=== PATIENT | male | born 1965 | race Caucasian/White ===

== ENCOUNTER 2023-12-20 08:49 | Emergency (ER) | payer BC, SELFPAY ==
[2023-12-20] VITALS (11 sets, daily range): BP systolic 129–136; BP diastolic 74–81; PULSE 61–85; RESP 15–23; TEMP 36.5; O2SAT 93–100; BMI 24.4
--- NOTE | 2023-12-20 08:57 | ECG_ITS ---
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
--- NOTE | 2023-12-20 08:58 | XR_ITS ---
The [address] [address] Patient Name: JOHN LOWE MRN: [id number] date: 1965 Sex: M Assigned Patient Location: ED.MAIN Current Patient Location: ER Accession/Order Number: [id number] Exam Date: 12/20/2023 09:45 Report Date: 12/20/2023 10:09 At the request of: KEITH SLAUGHTER Procedure: XR chest 2V EXAMINATION: XR chest 2V HISTORY: weakness COMPARISON: No relevant comparison available. TECHNIQUE: PA and lateral FINDINGS: LUNGS: No significant pulmonary parenchymal abnormalities. VASCULATURE: No increased pulmonary vasculature. PLEURA: No pneumothorax, effusion, or pleural thickening. CARDIAC: No cardiomegaly or cardiac silhouette abnormality. MEDIASTINUM: No visible mass or adenopathy. BONES: No fracture or visible bone lesion. OTHER: Negative. XR/XR chest 2V IMPRESSION: No acute cardiopulmonary process Electronically authenticated by: THOMAS ROWE Date: 12/20/2023 10:09
--- NOTE | 2023-12-20 08:58 | CT_ITS ---
The [address] [address] Patient Name: JOHN LOWE MRN: [id number] date: 1965 Sex: M Assigned Patient Location: ED.MAIN Current Patient Location: ED.MAIN Accession/Order Number: [id number] Exam Date: 12/20/2023 09:35 Report Date: 12/20/2023 10:06 At the request of: KEITH SLAUGHTER Procedure: CT head/brain wo con EXAM: CT head/brain wo con CLINICAL INDICATION: weakness TECHNIQUE: Unenhanced computerized tomography of the head was performed. Automated dose reduction technique was employed. COMPARISON: None. FINDINGS: The ventricles are normal in size, configuration, and position for age. There is no intra- or extra-axial mass, hemorrhage, or fluid collection. No areas of abnormal mass effect or attenuation are noted. Visualized paranasal sinuses are free of mucosal disease. No depressed calvarial fracture. CT/CT head/brain wo con IMPRESSION: No acute intracranial abnormality noted. Electronically authenticated by: DONNIE LAM Date: 12/20/2023 10:06
--- NOTE | 2023-12-20 09:01 | ED.GENADUL1 ---
HPI - General Adult General Chief complaint: Weakness Stated complaint: Flu Like Symptoms Time Seen by Provider: 12/20/23 08:56 Limitations: language barrier (IPAD INTERP USED) History of Present Illness HPI narrative: 58-year-old male to the emergency department with chief complaint of generalized weakness. Patient reports that for the last week and a half he has had increasing weakness most prominent in his upper extremities. He reports it is equal bilaterally. He reports that he just feels like he cannot get up and do things. He has been sick with an upper respiratory infection as has his . He denies any falls or injuries. He reports that he can't walk. He reports normal oral intake. He denies any chest pain or shortness of breath. He denies any fever, sweats, chills. He denies any abdominal pain, nausea, vomiting, diarrhea. He denies any vision changes, focal weakness, sensation changes. Patient reports he was seen at an emergency department one week ago for the same complaint and was told a spot on his lung but everything else looked okay. He reports that he was told that he needed to see a primary care doctor for which she has made an appointment but it is not for three weeks. Related Data Previous Rx's Medication Instructions Recorded methylprednisolone 4 mg tablets in 4 mg PO DAILY #21 ea 12/20/23 a dose pack (Medrol (Wiliam)) Allergies Allergy/AdvReac Type Severity Reaction Status Date / Time No Known Drug Allergies Allergy Verified 12/20/23 08:56 Review of Systems ROS Status of ROS 10 or more systems reviewed and unremarkable except as noted in history and below [facility] Social History Smoking status: Never smoker Exam Narrative Exam Narrative: VITALS: I have reviewed the triage vital signs. GENERAL: Well developed, well appearing adult in no acute distress. NEURO: Alert and oriented x4. Moves all extremities. Face is symmetric and expressive. Cranial nerves II through XII grossly intact as tested. Muscular strength and sensation grossly intact upper and lower extremities bilaterally. No dysarthria. No aphasia. No ataxia. Normal gait. NIHSS 0. EYES: PERRL. No scleral icterus or conjunctival injection. No discharge. HENT: Normocephalic, atraumatic. Hearing is grossly intact. Nares grossly patent and without discharge. Mucous membranes moist. NECK: No JVD. Patient moves neck without restriction. CARDIO: Rhythm regular. Normal rate. No murmur, rub, or gallop. Pulses equal bilaterally in the upper and lower extremity. No lower extremity edema. PULM: Lungs clear to auscultation in all oneal. No wheezes, rales, or rhonchi. No conversational dyspnea. No splinting, stridor, or accessory muscle use. GI/: Abdomen is soft and non-tender. Normoactive bowel sounds. EXTREMITIES: Symmetric muscle bulk. No joint swelling. No clubbing, cyanosis, or deformity. SKIN: Warm and dry. Normal turgor. No rash or lesions appreciated. PSYCH: Mood, affect, and interaction is appropriate to the setting. Constitutional Vital Signs, click to edit/add: Last Vital Signs Temp 97.7 F 12/20/23 08:56 Pulse 85 12/20/23 10:10 Resp 19 12/20/23 10:10 BP 136/74 12/20/23 10:22 Pulse Ox 93 L 12/20/23 10:21 O2 Del Method Room Air 12/20/23 08:56 Course Vital Signs Vital signs: Vital Signs Temperature 97.7 F 12/20/23 08:56 Pulse Rate 69 12/20/23 08:56 Respiratory Rate 18 12/20/23 08:56 Blood Pressure 129/81 12/20/23 08:56 Pulse Oximetry 100 12/20/23 08:56 Oxygen Delivery Method Room Air 12/20/23 08:56 Temperature 97.7 F 12/20/23 08:56 Pulse Rate 85 12/20/23 10:10 Respiratory Rate 19 12/20/23 10:10 Blood Pressure 136/74 12/20/23 10:22 Pulse Oximetry 93 L 12/20/23 10:21 Oxygen Delivery Method Room Air 12/20/23 08:56 Medical Decision Making [facility] Narrative Medical decision making narrative: 58-year-old male to the emergency for acute weakness and viral upper respiratory infection symptoms ongoing for the last week and a half. I was able to the patient is afebrile. This is his 2nd Emergency Department visit for this complaint by one week. He has no focal neurologic deficits on exam. We'll proceed with basic workup, troponin, EKG. Obtain a CT scan of his head and chest x-ray. Fluids are ordered. Patient agrees with this plan. 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 Workup is unremarkable. He has a mild Lymphocytopenia which clinically correlates with suspected viral syndrome. Patient ambulated around the department without any difficulties. CT head is negative. Chest x-ray without acute findings. Lab work is unremarkable. He reports he has some pain in his bilateral shoulders and knees now. Medrol Dosepak ordered. He'll follow up with PCP. Return to caution her discussed. All questions were answered. The patient was discharged home. Medical Records Medical records reviewed: Yes I reviewed the patient's medical records Lab Data Lab results reviewed: Yes I reviewed the patient's lab results Labs: Lab Results 12/20/23 12/20/23 12/20/23 Range/Units 09:08 09:13 10:16 WBC 4.5 (4.0-11.0) 10^3/uL RBC 4.23 L (4.70-6.10) 10^6/uL Hgb 13.5 L (14.0-18.0) g/dL Hct 41.5 L (42.0-54.0) % MCV 98.1 H (80.0-94.0) fL MCH 31.9 (25.9-34.0) pg MCHC 32.5 (29.9-35.2) g/dL RDW 12.4 (11.0-15.0) % Plt Count 209 (150-450) 10^3/uL MPV 8.9 L (9.5-13.5) fL Neut % (Auto) 69.8 (43.0-75.0) % Lymph % (Auto) 17.9 L (20.5-60.0) % [place] % (Auto) 8.3 (1.7-12.0) % Eos % (Auto) 3.1 (0.9-7.0) % Baso % (Auto) 0.7 (0.2-2.0) % Neut # (Auto) 3.1 (1.4-6.5) 10^3/uL Lymph # (Auto) 0.8 L (1.2-3.8) 10^3/uL [place] # (Auto) 0.4 (0.3-0.8) 10^3/uL Eos # (Auto) 0.1 (0.0-0.7) 10^3/uL Baso # (Auto) 0.0 (0.0-0.1) 10^3/uL Abs Immat Gran (auto) 0.01 (0.00-0.03) 10^3/uL Imm/Tot Granulo (auto) 0.2 (0.0-0.5) % Sodium 135 L (136-145) mmol/L Potassium 4.3 (3.5-5.1) mmol/L Chloride 101 (98-107) mmol/L Carbon Dioxide 26.0 (21.0-32.0) mmol/L Anion Gap 12.3 BUN 11.0 (7.0-18.0) mg/dL Creatinine 0.86 (0.70-1.30) mg/dL Est GFR ( Amer) >60 (>=60) Est GFR (Non-Af Amer) >60 (>=60) BUN/Creatinine Ratio 12.8 Glucose 109 H (74-106) mg/dL Calcium 8.6 (8.5-10.1) mg/dL Magnesium 1.8 (1.8-2.4) mg/dL Total Bilirubin 0.6 (0.2-1.0) mg/dL AST 24 (15-37) U/L ALT 27 (16-63) U/L Alkaline Phosphatase 84 (46-116) U/L Troponin I High Sens <4.0 L (4.0-76.1) pg/mL Total Protein 7.4 (6.4-8.2) g/dL Albumin 3.4 (3.4-5.0) g/dL Globulin 4.0 g/dL Albumin/Globulin Ratio 0.9 Urine Color Lt. yellow (YELLOW) Urine Clarity Clear (CLEAR) Urine pH 7.5 (5.0-9.0) Ur Specific [place] 1.015 (1.005-1.025) Urine Protein Negative (NEG/TRACE) mg/dL Urine Glucose (UA) Negative (NEGATIVE) mg/dL Urine Ketones Negative (NEGATIVE) mg/dL Urine Occult Blood Negative (NEGATIVE) Urine Nitrite Negative (NEGATIVE) Urine Bilirubin Negative (NEGATIVE) Urine Urobilinogen 0.2 (0.2-1.0) EU/dL Ur Leukocyte Esterase Negative (NEGATIVE) Adenovirus (PCR) Not detected (NOT DETECTE) C. pneumoniae DNA (PCR) Not detected (NOT DETECTE) Coronavirus Type OC43 Not detected (NOT DETECTE) Coronavirus Type HKU1 Not detected (NOT DETECTE) Coronavirus Type 229E Not detected (NOT DETECTE) Coronavirus Type NL63 Not detected (NOT DETECTE) Human Metapneumovir PCR Not detected (NOT DETECTE) M. pneumoniae (PCR) Not detected (NOT DETECTE) Parainfluenza PCR Not detected (NOT DETECTE) Parainfluenza 2 (PCR) Not detected (NOT DETECTE) Parainfluenza 3 (PCR) Not detected (NOT DETECTE) Parainfluenza 4 (PCR) Not detected (NOT DETECTE) RSV (RT-PCR) Not detected (NOT DETECTE) Entero/Rhino (PCR) Not detected (NOT DETECTE) SARS-CoV-2 (PCR) Not detected (NOT DETECTE) Bordetella pertussis (PCR) Not detected (NOT DETECTE) B parapertussis DNA PCR Not detected (NOT DETECTE) Influenza Type A (PCR) Not detected (NOT DETECTE) Influenza Type B (PCR) Not detected (NOT DETECTE) Imaging Data Chest x-ray: Radiologist's impression: ITS Impressions Chest X-Ray 12/20/23 08:58 IMPRESSION: No acute cardiopulmonary process Electronically authenticated by: THOMAS ROWE Date: 12/20/2023 10:[address] 12/20/23 08:58 IMPRESSION: No acute intracranial abnormality noted. Electronically authenticated by: DONNIE LAM Date: 12/20/2023 10:06 ECG Data Attestation: I personally reviewed and interpreted this ECG as follows: Discharge Plan Discharge Chief Complaint: Weakness Clinical Impression: Malaise and fatigue, Viral infection Patient Disposition: Home, Self-Care Time of Disposition Decision: 11:39 Condition: Good Prescriptions / Home Meds: New methylprednisolone [Medrol (Wiliam)] 4 mg tablets,dose pack 4 mg PO DAILY Qty: 21 0RF Rx Instructions: TAKE PER DOSEPAK INSTRUCTIONS Print Language: Tristanian Instructions: Viral Syndrome (ED), Fatigue (ED) Additional Instructions: FOLLOW-UP WITH THE PRIMARY DOCTOR [facility] SETUP FOR YOU SCHEDULED Referrals: Physician,Non-Staff, MD [Primary Care Provider] - 1 week Discharge Date/Time: 12/20/23 11:47 Stand Alone Forms: Portal Instructions
[2023-12-20] MEDS: 0.9 % SODIUM CHLORIDE 1,000 ML 999 ML IV (09:12)
[2023-12-20 09:19] LABS: Adenovirus NOT DETECTED (NOT DETECTE); Bordetella parapertussis NOT DETECTED (NOT DETECTE); Coronavirus 229E NOT DETECTED (NOT DETECTE); Coronavirus HKU1 NOT DETECTED (NOT DETECTE); Coronavirus NL63 NOT DETECTED (NOT DETECTE); Coronavirus OC43 NOT DETECTED (NOT DETECTE); Human Metapneumovirus NOT DETECTED (NOT DETECTE); Human Rhinovirus/Enterovirus NOT DETECTED (NOT DETECTE); Influenza A NOT DETECTED (NOT DETECTE); Influenza B NOT DETECTED (NOT DETECTE); Mycoplasma pneumoniae NOT DETECTED (NOT DETECTE); Parainfluenza Virus 1 NOT DETECTED (NOT DETECTE); Parainfluenza Virus 2 NOT DETECTED (NOT DETECTE); Parainfluenza Virus 3 NOT DETECTED (NOT DETECTE); Parainfluenza Virus 4 NOT DETECTED (NOT DETECTE); Respiratory Syncytial Virus NOT DETECTED (NOT DETECTE); SARS-CoV-2 NOT DETECTED (NOT DETECTE)
[2023-12-20 09:20] LABS: Basophils Percent Auto 0.7 % (0.2-2.0); Eosinophils Absolute Auto 0.1 10^3/uL (0.0-0.7); Eosinophils Percent Auto 3.1 % (0.9-7.0); Hematocrit 41.5 % (42.0-54.0); Hemoglobin 13.5 g/dL (14.0-18.0); Immature Granulocytes Abs Auto 0.01 10^3/uL (0.00-0.03); Immature Granulocytes Pct Auto 0.2 % (0.0-0.5); Lymphocytes Absolute Auto 0.8 10^3/uL (1.2-3.8); Lymphocytes Percent Auto 17.9 % (20.5-60.0); Mean Corpuscular HGB Conc 32.5 g/dL (29.9-35.2); Mean Corpuscular Hemoglobin 31.9 pg (25.9-34.0); Mean Corpuscular Volume 98.1 fL (80.0-94.0); Mean Platelet Volume 8.9 fL (9.5-13.5); Monocytes Absolute Auto 0.4 10^3/uL (0.3-0.8); Monocytes Percent Auto 8.3 % (1.7-12.0); Neutrophils Absolute Auto 3.1 10^3/uL (1.4-6.5); Neutrophils Percent Auto 69.8 % (43.0-75.0); Platelet Count 209 10^3/uL (150-450); Red Blood Count 4.23 10^6/uL (4.70-6.10); Red Cell Distribution Width 12.4 % (11.0-15.0); White Blood Count 4.5 10^3/uL (4.0-11.0)
[2023-12-20 09:44] LABS: Troponin I High Sensitivity <4.0 pg/mL (4.0-76.1)
[2023-12-20 10:00] LABS: Alanine Aminotransferase 27 U/L (16-63); Albumin Globulin Ratio 0.9; Albumin Level 3.4 g/dL (3.4-5.0); Alkaline Phosphatase 84 U/L (46-116); Anion Gap 12.3; Aspartate Amino Transferase 24 U/L (15-37); BUN Creatinine Ratio 12.8; Bilirubin Total 0.6 mg/dL (0.2-1.0); Calcium 8.6 mg/dL (8.5-10.1); Chloride 101 mmol/L (98-107); Estimated GFR (African America >60 (>=60); Estimated GFR (Non-African Ame >60 (>=60); Glucose 109 mg/dL (74-106); Magnesium 1.8 mg/dL (1.8-2.4); Potassium 4.3 mmol/L (3.5-5.1); Sodium 135 mmol/L (136-145); Total Protein 7.4 g/dL (6.4-8.2)
[2023-12-20 10:51] LABS: Bilirubin Urine NEGATIVE (NEGATIVE); Blood Urine NEGATIVE (NEGATIVE); Clarity Urine CLEAR (CLEAR); Color Urine LT. YELLOW (YELLOW); Glucose Urine UA NEGATIVE (NEGATIVE); Ketones Urine NEGATIVE (NEGATIVE); Leukocyte Esterase Urine NEGATIVE (NEGATIVE); Nitrite Urine NEGATIVE (NEGATIVE); Protein Urine NEGATIVE (NEG/TRACE); Specific Gravity Urine 1.015 (1.005-1.025); Urobilinogen Urine 0.2 EU/dL (0.2-1.0); pH Urine 7.5 (5.0-9.0)
[2023-12-20 10:52] LABS: Urine Microscopic Indicated NO
== END 2023-12-20 11:47 | disposition home or self-care (01) ==
PROVIDERS: Emergency Provider Student in an Organized Health Care Education/Training Program
DX: B34.9 Viral infection, unspecified (principal); R53.81 Other malaise; R53.83 Other fatigue; R53.1 Weakness
CPT/HCPCS: 0202U; 36415; 70450; 71046; 80053; 81003; 83735; 84484; 85025; 93005; 99285

== ENCOUNTER 2024-03-27 10:55 | Outpatient (OUT) | payer BC, SELFPAY | END 2024-03-27 10:56 | disposition home or self-care (01) | LOC: PST 10:56 | PROVIDERS: Visit Provider Surgery | DX: Z01.818 Encounter for other preprocedural examination (principal); Z12.11 Encounter for screening for malignant neoplasm of colon ==

== ENCOUNTER 2024-04-04 07:43 | Day surgery (SDC) | payer BC, SELFPAY ==
--- OUTSIDE RECORDS SUMMARY | 2024-04-04 07:47 | XMS_ITS | CCD ---
Author Organization [facility] Inform ion Partnership [facility] Care Team Providers Care Entry Specialists Name Role Phone NO PCP, NO PCP Primary Care Unavailable JAKE, JEANETTE Attending Unavailable JAKE, JEANETTE Attending Unavailable JAKE, JEANETTE Referring Unavailable NO PCP, NO PCP Primary Care Unavailable ALEA, FRANCHESCA Referring Unavailable ALEA, FRANCHESCA Primary Care Unavailable GOLDY HELM Attending Unavailable ALEA, FRANCHESCA Referring Unavailable ALEA, FRANCHESCA Primary Care Unavailable Problems Active Problems Problem Classification Problem Date Documented Date Episodic/Chronic Diseases of white blood cells (1 source) Decreased white blood cell count, unspecified; Translations: [Decreased white blood cell count, unspecified] Onset: 12-15-2023 Chronic Immunizations and screening for infectious disease (2 sources) Encounter for screening for other viral diseases; Translations: [Encounter for screening for human immunodeficiency virus [HIV]] Onset: 03-20-2024 Episodic Other screening for suspected conditions (not mental disorders or infectious disease) (3 sources) Encounter for screening for malignant neoplasm of prostate; Translations: [Encounter for screening for cardiovascular disorders] Onset: 03-20-2024 Episodic Unclassified (1 source) Weakness - Generalized Onset: 12-15-2023 Unclassified (1 source) Shoulder Pain, Loss of Strength in both legs Onset: 12-15-2023 Unclassified (1 source) Colon Cancer Screening Onset: 03-20-2024 Past or Other Problems Problem Classification Problem Date Documented Da te Episodic/Chronic Conditions associated with dizziness or vertigo (1 source) Dizziness and giddiness; Translations: [Dizziness and giddiness] Onset: 12-15-2023 Episodic Results Test Name Value Interpretation Reference Range Facil ity HCV Ab IA Qlon 03-20-2024 ANTI HCV W/PCR REFLX Non-Reactive Normal NRCT Pr [facility] Comment on above: Result Comment: If recent infection suspected, recommend repeat testing (>2 months). Zhbuny-px-lhfgdc ratio is <0.80. Performed By: #### 2 4331-1, 2857-1, 37435-7, 65052-5 #### [facility] ([id number]) [address], [address] [place] [address] HIV 1+2 Ab+HIV1 p24 Ag IA Ql on 03-20-2024 HIV 1 and 2 Ab/Ag Screen Non-Reactive Normal NRCT [facility] Comment on above: Result Comment: This information has been disclosed to you from confidential records protected from disclosure by state law. You shall make no further disclosure of this information without the specific, written and informed release of the individual to whom it pertains, or as otherwise permitted by state law. A general authorization for the release of medical or other information is not sufficient for the purpose of the release of HIV test results or diagnoses. Performed By: #### 2 4331-1, 2857-1, 84912-1, 70854-3 #### [facility] ([id number]) [address], [address] [place] [address] Lipid 1996 panelon Cholesterol [Mass/Vol] 192 mg/dL Normal 150-200 [facility] Comment on above: Performed By: #### 2 4331-1, 2857-1, 73317-1, 08517-2 #### [facility] ([id number]) [address], [address] [place] [address] Cholesterol in HDL [Mass/Vol] 49 mg/dL Normal >39 [facility] Comment on above: Result Comment: HDL <40 mg/dL - High Risk HDL > or = 40mg/dL- Desirable HDL >60 mg/dL - Negative Risk Performed By: #### 2 4331-1, 2857-1, 79811-5, 19027-7 #### [facility] ([id number]) [address] [place] [address] Cholesterol in LDL [Mass/Vol] 126 mg/dL Normal <130 [facility] Comment on above: Result Comment: LDL <100 mg/dL - Desirable LDL >160 mg/dL - High Risk Performed By: #### 2 4331-1, 2857-1, 03836-6, 29392-8 #### [facility] ([id number]) [address] [place] [address] Cholesterol in VLDL [Mass/Vol] 17 mg/dL Normal 0-30 [facility] Comment on above: Performed By: #### 2 4331-1, 2857-1, 37075-4, 00649-8 #### [facility] ([id number]) [address] [address] CHOLESTEROL:HDL 3.9 Normal 1.0-5.0 [facility] Comment on above: Performed By: #### 2 4331-1, 2857-1, 16914-8, 58737-7 #### [facility] ([id number]) [address] [place] [address] Triglyceride [Mass/Vol] 87 mg/dL Normal 27-150 [facility] Comment on above: Performed By: #### 2 4331-1, 2857-1, 25086-2, 13881-0 #### [facility] ([id number]) [address] [place] [address] Prostate specific Ag [Mass/V ol]on 03-20-2024 PSA W/RFLX TO FREE PSA 2.86 ng/mL Normal 0.00-4.00 [facility] Comment on above: Performed By: #### 2 4331-1, 2857-1, 24420-0, 41373-1 #### [facility] ([id number]) [address] [place] [address] CBC AND AUTO DIFFon 12-15-19 ABSOLUTE BASOPHIL 0.0 X10E9/L Normal 0.0-0.2 [facility] Comment on above: Performed By: #### C BCA, CMP, , 70661-2 #### [facility] ([id number]) [address] [place] [address] ABSOLUTE NEUTROPHIL 2.5 X10E9/L Normal 1.5-6.6 [facility] Comment on above: Performed By: #### C BCA, CMP, , 55936-6 #### [facility] ([id number]) [address] [place] [address]85[address] Basophils/100 WBC (Bld) 0.9 % Normal [facility] Comment on above: Performed By: #### C BCA, CMP, , 86523-3 #### [facility] ([id number]) [address] [place] [address] Eosinophils (Bld) [#/Vol] 0.1 10*3/uL Normal 0.0-0.4 [facility] Comment on above: Performed By: #### C BCA, CMP, , 92095-0 #### [facility] ([id number]) [address] [place] [address] 94464 Eosinophils/100 WBC (Bld) 2.5 % Normal [facility] Comment on above: Performed By: #### C BCA, CMP, , 88391-1 #### [facility] ([id number]) [address] [place] [address] 73367 Erythrocyte distribution width (RBC) [Ratio] 13.3 % Normal 11.5-15.0 [facility] Comment on above: Performed By: #### C BCA, CMP, , 88351-5 #### [facility] ([id number]) [address] [place] [address] 91734 Hematocrit (Bld) [Volume fraction] 42.8 % Normal 39-49 [facility] Comment on above: Performed By: #### C BCA, CMP, , 66668-6 #### [facility] ([id number]) [address] [place] [address] 90899 Hemoglobin (Bld) [Mass/Vol] 14.5 g/dL Normal 13.0-17.0 [facility] Comment on above: Performed By: #### C BCA, CMP, , 31763-4 #### [facility] ([id number]) [address] [place] [address] 66869 Lymphocytes (Bld) [#/Vol] 0.9 10*3/uL Low 1.0-3.5 [facility] Comment on above: Performed By: #### C BCA, CMP, , 96613-4 #### [facility] ([id number]) [address] [place] [address] 05967 Lymphocytes/100 WBC (Bld) 24.7 % Normal [facility] Comment on above: Performed By: #### C BCA, CMP, , 06760-7 #### [facility] ([id number]) [address] [place] [address] 29295 MCH (RBC) [Entitic mass] 32.5 pg Normal 27-34 [facility] Comment on above: Performed By: #### C BCA, CMP, , #### [facility] ([id number]) [address] [place] [address] 20601 MCHC (RBC) [Mass/Vol] 33.9 g/dL Normal 32-36 [facility] Comment on above: Performed By: #### C BCA, CMP, , 31496-7 #### [facility] ([id number]) [address] [place] [address] 98195 MCV (RBC) [Entitic vol] 96 fL Normal 80-100 [facility] Comment on above: Performed By: #### C BCA, CMP, , 76023-5 #### [facility] ([id number]) [address] [place] [address] 30278 Monocytes (Bld) [#/Vol] 0.3 10*3/uL Normal 0-0.9 [facility] Comment on above: Performed By: #### C BCA, CMP, , 61696-1 #### [facility] ([id number]) [address] [place] [address] 71593 Monocytes/100 WBC (Bld) 7.3 % Normal [facility] Comment on above: Performed By: #### C BCA, CMP, , 52104-6 #### [facility] ([id number]) [address] [place] [address] 21788 Neutrophils/100 WBC (Bld) 64.6 % Normal [facility] Comment on above: Performed By: #### C BCA, CMP, , 32131-1 #### [facility] ([id number]) [address] [place] [address] 64860 Platelet mean volume (Bld) [Entitic vol] 7.2 fL Normal 7-12 [facility] Comment on above: Performed By: #### C BCA, CMP, , 01413-7 #### [facility] ([id number]) [address] [place] [address] 23617 Platelets (Bld) [#/Vol] 263 10*3/uL Normal 150-450 [facility] Comment on above: Performed By: #### C BCA, CMP, , 39647-0 #### [facility] ([id number]) [address] [place] [address] 21450 RBC COUNT 4.46 X10E12/L Normal 4.10-5.70 [facility] Comment on above: Performed By: #### C BCA, CMP, , 30336-7 #### [facility] ([id number]) [address] [place] [address] 35139 WBC (Bld) [#/Vol] 3.8 10*3/uL Low 4.0-11.0 [facility] Comment on above: Performed By: #### C BCA, CMP, , 50304-3 #### [facility] ([id number]) [address] [place] [address] 34685 COMPREHENSIVE METABOLIC PANE Manuel 12-15-2023 Albumin [Mass/Vol] 4.3 g/dL Normal 3.2-5.3 [facility] Comment on above: Performed By: #### C BCA, CMP, , 39430-4 #### [facility] ([id number]) [address] [place] [address] 90918 ALP [Catalytic activity/Vol] 81 U/L Normal 39-130 [facility] Comment on above: Performed By: #### C BCA, CMP, , 61127-4 #### [facility] ([id number]) [address] [place] [address] 80748 ALT [Catalytic activity/Vol] 19 U/L Normal 0-40 [facility] Comment on above: Performed By: #### C BCA, CMP, , 23564-6 #### [facility] ([id number]) [address] [place] [address] 04607 Anion gap [Moles/Vol] 6 mmol/L Normal 5-15 [facility] Comment on above: Performed By: #### C BCA, CMP, , 32609-0 #### [facility] ([id number]) [address] [place] [address] 40324 AST [Catalytic activity/Vol] 27 U/L Normal 0-41 [facility] Comment on above: Performed By: #### C BCA, CMP, , 63942-8 #### [facility] ([id number]) [address] [place] [address] 47394 Bilirubin [Mass/Vol] 0.7 mg/dL Normal 0.3-1.2 [facility] Comment on above: Performed By: #### C BCA, CMP, , 58863-7 #### [facility] ([id number]) [address] [place] [address] 98263 Calcium [Mass/Vol] 9.2 mg/dL Normal 8.5-10.5 [facility] Comment on above: Performed By: #### C BCA, CMP, , 81044-7 #### [facility] ([id number]) [address] [place] [address] 74747 Chloride [Moles/Vol] 106 mmol/L Normal 98-109 [facility] Comment on above: Performed By: #### C BCA, CMP, , 09806-4 #### [facility] ([id number]) [address] [place] [address] 86235 CO2 [Moles/Vol] 24 mmol/L Normal 22-32 [facility] Comment on above: Performed By: #### C BCA, CMP, , 79415-6 #### [facility] ([id number]) [address] [place] [address] 98963 Creatinine [Mass/Vol] 0.71 mg/dL Normal 0.70-1.20 [facility] Comment on above: Result Comment: METH OD TRACEABLE TO IDMS STANDARD Performed By: #### C SARMAD KELLER, , 02709-7 #### [facility] ([id number]) [address] [place] [address] 31727 eGFR (CKD-EPI) NON-RACE DEPENDENT >90 Normal >59 [facility] Comment on above: Result Comment: Reported eGFR is based on the CKD-EPI 2020 equation that does not use a race coefficient. Performed By: #### C SARMAD KELLER, , 32831-7 #### [facility] ([id number]) [address] [place] [address] 18896 Glucose [Mass/Vol] 107 mg/dL High 65-99 [facility] Comment on above: Performed By: #### C SARMAD KELLER, , 80810-2 #### [facility] ([id number]) [address] [place] [address] 63286 Potassium [Moles/Vol] 4.2 mmol/L Normal 3.5-5.0 [facility] Comment on above: Performed By: #### C KRISHNA CMP, , 69860-9 #### [facility] ([id number]) [address] [place] [address] 93726 Protein [Mass/Vol] 7.8 g/dL Normal 6.0-8.0 [facility] Comment on above: Performed By: #### C KRISHNA, CMP, , 22539-5 #### [facility] ([id number]) [address] [place] [address] 33185 Sodium [Moles/Vol] 136 mmol/L Normal 134-146 [facility] Comment on above: Performed By: #### C BCA, CMP, , 90369-9 #### [facility] ([id number]) [address] [place] [address] 88364 Urea nitrogen [Mass/Vol] 15 mg/dL Normal 5-23 [facility] Comment on above: Performed By: #### C BCA, CMP, , 75142-9 #### [facility] ([id number]) [address] [place] [address] 22204 MAGNESIUMon 12-15-2023 Magnesium [Mass/Vol] 2.5 mg/dL Normal 1.8-2.6 [facility] Comment on above: Performed By: #### C BCA, CMP, , 47893-6 #### [facility] ([id number]) [address] [place] [address] 11379 TROPONIN Ion 12-15-2023 Troponin I.cardiac [Mass/Vol] 0.02 ng/mL Normal 0.00-0.04 [facility] Comment on above: Performed By: #### C BCA, CMP, , 48798-0 #### [facility] ([id number]) [address] [place] [address] 23944 URN MACROSCOPIC NURon 2023 BILIRUBIN LAKISHA Negative Normal NEG [facility] Comment on above: Performed By: #### N UM #### [facility] ([id number]) [address] [place] [address] 84193 BLOOD/HGB LAKISHA Negative Normal NEG [facility] Comment on above: Performed By: #### N UM #### [facility] ([id number]) [address] [place] [address] 99189 GLUCOSE LAKISHA Negative Normal NEG [facility] Comment on above: Performed By: #### N UM #### [facility] ([id number]) [address] [place] [address] [place] [address] KETONES LAKISHA Negative Normal NEG [facility] Comment on above: Performed By: #### N UM #### [facility] ([id number]) [address] [place] [address] 20389 LEUKOCYTE ESTERASE LAKISHA Negative Normal NEG [facility] Comment on above: Performed By: #### N UM #### [facility] ([id number]) [address] [place] [address] 83257 NITRITE LAKISHA Negative Normal NEG [facility] Comment on above: Performed By: #### N UM #### [facility] ([id number]) [address] [place] [address] 33339 PH LAKISHA 8.0 Normal 5.0-8.5 [facility] Comment on above: Performed By: #### N UM #### [facility] ([id number]) [address] [place] [address] 19982 PROTEIN LAKISHA Negative Normal NEG [facility] Comment on above: Performed By: #### N UM #### [facility] ([id number]) [address] [place] [address] 90840 SPECIFIC GRAVITY LAKISHA 1.015 Normal 1.003-1.035 [facility] Comment on above: Performed By: #### N UM #### [facility] ([id number]) [address] [place] [address] [place] [address] UROBILINOGEN LAKISHA 0.2 eu/dL Normal <1.1 [facility] Comment on above: Performed By: #### N UM #### [facility] ([id number]) [address] [place] [address] 77509 XR CHEST 1 VWon 12-15-2023 XR CHEST 1 VW XR CHEST 1 VW Single view chest History: Difficulty breathing, shortness of breath Comparison: None Findings: Single portable view of the chest. Cardiomediastinal silhouette is within normal limits. Minimally increased interstitial opacity at the left greater than right lung base. No definite pleural effusion or pneumothorax. Impression: Minimally increased interstitial opacity at the left greater than right lung base, findings could relate to atelectasis, mild edema, and/or infectious process. 5 Finalized by Hayden Christensen on 12/15/2023 2:11 PM [facility] Consenton 06-20-2020 Consent [id number] 233#1.00CD:127 Normal [facility] Registrationon 06-20-2020 Registration [id number] [id number]#1.00CD:127 [facility] Encounters Encounter Date Encounter Type Care Provider Facility Start: 03-20-2024 End: 03-20-2024 ambulatory FRANCHESCA [facility] Start: 12-15-2023 End: 12-16-2023 Emergency department patient visit JEANETTE JOSEPH [facility] Start: 12-15-2023 End: 12-15-2023 Emergency department patient visit NO PCP NO PCP [facility] Payers Date Payer Category Payer Unknown [id number] 1965 Unknown [id number] [id number] [id number] 1965 Unknown [id number] 2.16.8 [id number] 1965 Unknown [id number] 2.16.8 [id number] 1965 Unknown [id number] 2.16.8 [id number] Summary Purpose Family History No Family History Records FoundNo Family History Records FoundNo Family History Records Found Advance Directives No Advanced Directives Records FoundNo Advanced Directives Records FoundNo Advanced Directives Records Found Additional Source Comments (unrecognized sect ion and content) No Status Records FoundNo Status Records FoundNo Status Records Found INFORMATION SOURCE (unrecogn ized section and content) DATE CREATED AUTHOR 06/21/2020 Álvaro [facility] DATE CREATED AUTHOR AUTHOR'S CARA ATION 03/21/2024 [facility] DATE CREATED AUTHOR AUTHOR'S ORGANIZ ATION 03/21/2024 [facility] FOR RECORDS PERTAINING TO PATIENTS WHO ARE OR HAVE BEEN ENROLLED IN A CHEMICAL DEPENDENCY/SUBSTANCEABUSE PROGRAM, SOME INFORMATION MAY BE OMITTED. This clinical summary was aggregated from multiple sources. Caution should be exercised in using it in the provision of clinical care. This summary normalizes information from multiple sources, and as a consequence, information in this document may materially change the coding, format and clinical context of patient data. In addition, data may be omitted in some cases. CLINICAL DECISIONS SHOULD BE BASED ON THE PRIMARY CLINICAL RECORDS. [facility]. provides no warranty or guarantee of the accuracy or completeness of information in this document.
[2024-04-04 07:50] VITALS: BP 115/83; PULSE 61; TEMP 36.4; O2SAT 98; BMI 24.0
[2024-04-04] MEDS: LACTATED RINGER'S SOLUTION 1,000 ML 50 ML IV (08:27)
--- NOTE | 2024-04-04 09:10 | PM.GSPRC ---
Date of procedure: 04/04/24 Indications for Procedure: Screening for cancer Pre-op diagnosis: Screening for cancer Post-op diagnosis: other (Normal colon) Procedure: colonoscopy Findings: Normal Anesthesia: MAC Surgeon: Miguel Ahuja Procedure Summary: PROCEDURE: The patient was taken to the Endoscopy Suite, placed in the left lateral recumbent position, given IV sedation as above. A rectal digital exam was performed. The sphincter tone was found to be normal. Prostate was smooth nonenlarged without nodules. No rectal masses were appreciated. The Olympus video colonoscope was advanced under direct visualization to the rectum, sigmoid colon, descending colon, transverse colon and ascending colon to the ileocecal valve. The underside of the valve was seen. Appendiceal lumen was visualized. The scope was slowly withdrawn with air being desufflated as it was withdrawn. No gross tumors, polyps or diverticula were seen. The patient tolerated the procedure well and went to the Recovery Area in satisfactory condition. I recommend the patient have repeat screening colonoscopy in 10 years unless problems. Estimated blood loss (mL): 0 Specimens: None Complications: No Pathology: none sent Condition: stable Disposition: PACU
[2024-04-04 09:14] VITALS: BP 106/72; PULSE 62; TEMP 36.5; O2SAT 100
[2024-04-04 09:29] VITALS: BP 120/77; PULSE 50; O2SAT 99
[2024-04-04 09:44] VITALS: BP 131/78; PULSE 52; O2SAT 99
== END 2024-04-04 09:44 | disposition home or self-care (01) ==
PROVIDERS: Visit Provider Surgery
PROC: (CPT 00811; principal; 2024-04-04 08:30)
DX: Z12.11 Encounter for screening for malignant neoplasm of colon (principal); Z80.0 Family history of malignant neoplasm of digestive organs
CPT/HCPCS: 00811; 45378; J2704

== ENCOUNTER 2024-10-24 10:30 | Emergency (ER) | payer BC, SELFPAY ==
[2024-10-24] VITALS (10 sets, daily range): BP systolic 130–153; BP diastolic 84–93; PULSE 63–68; TEMP 36.9; O2SAT 99–100; BMI 25.8
--- NOTE | 2024-10-24 10:34 | ECG_ITS ---
The [facility] Test Date: 2024-10-24 Pat Name: JOHN LOWE Department: Room: - Gender: Male Clinical Therapist: : 1965 Requested By: [id number] Order Number: [id number] Reading MD: RAAD JEFFREY Measurements Intervals [place] Rate: 62 P: 55 TN: 134 QRS: 54 QRSD: 80 T: 12 QT: 386 QTc: 392 Interpretive Statements 1100 Sinus rhythm 1102 Sinus arrhythmia 4068 Nonspecific Twave abnormality 9130 borderline ECG Compared to ECG 12/20/2023 09:03:17 No significant changes Electronically Signed On 10-24-2024 20:48:36 EST by RAAD JEFFREY
--- NOTE | 2024-10-24 10:34 | CT_ITS ---
The [address] [address] Patient Name: JOHN LOWE MRN: [id number] date: 1965 Sex: M Assigned Patient Location: ER Current Patient Location: ED.MAIN Accession/Order Number: [id number] Exam Date: 10/24/2024 10:40 Report Date: 10/24/2024 11:22 At the request of: JAYME SCOTT Procedure: CT head/brain wo con EXAMINATION: CT head/brain wo con, 10/24/2024 10:40 AM EST HISTORY: dizzy, visual changes COMPARISON: 12/20/2023 TECHNIQUE: CT scan of the head was performed without IV contrast. CT dose reduction technique was used, including Automated Exposure Control. HISTORY: dizzy, visual changes FINDINGS: BRAIN: No edema, hemorrhage, mass, acute infarction, or inappropriate atrophy. CSF SPACES: No hydrocephalus, subarachnoid hemorrhage, or mass. Appropriate for age. SKULL: No fracture, mass, or other significant visible lesion. SINUSES: No significant mucosal thickening or fluid on the limited views. ORBITS: No appreciable abnormality on the limited views. OTHER: Negative CT/CT head/brain wo con IMPRESSION: No acute intracranial abnormality Electronically authenticated by: THOMAS ROWE Date: 10/24/2024 11:22
--- NOTE | 2024-10-24 10:36 | ED.GENADUL1 ---
HPI HPI - General Adult General Chief complaint: Extremity Problem, Nontraumatic Stated complaint: lower extremity pain Time Seen by Provider: 10/24/24 10:33 History of Present Illness HPI narrative: Patient presents to ED complaining of muscle cramping. Patient states he has been in the ER before for muscle cramping but it got better. It seemed to get better when he was not at work but he started going back to work today and when he was walking around work he was getting muscle cramping. He complains of muscle cramping bilateral lower extremities and left arm left trapezius and left side of the back. He does also report some dizziness with blurry vision. No syncope no chest pain. No diaphoresis nausea or vomiting. Patient states he did not go to the doctor before when this happened because it got better so he did not do any follow-up about his muscle cramping. No calf pain or swelling. The cramping is now subsided but it was worse at work. He does drink alcohol daily, he claims he takes 2 shots every night to help him go to sleep. He is a little bit shaky on arrival. Neuro intact answering questions appropriately. No visual changes here. Patient denies any fevers or cough. Normal pulses on all 4 extremities. Patient is [place]-speaking but has a friend here who is interpreting everything for us. Related Data Home Medications ?Medication ?Instructions ?Recorded ?Confirmed ibuprofen 200 mg tablet (Advil) 600 mg PO .every morning 03/27/24 03/27/24 multivitamin (Daily Multi-Vitamin 1 tab PO DAILY 03/27/24 03/27/24 tablet) peg [id number] [id number] See Rx Instructions PO .COMPLEX 03/27/24 03/27/24 178.7-7.3-0.5-1.12-0.9 gram oral colonoscopy prep soln (Suflave) Allergies Allergy/AdvReac Type Severity Reaction Status Date / Time No Known Drug Allergies Allergy Verified 10/24/24 10:32 Opioid HPI Opioid Management Most Recent Opioid Data: No Data to Display Review of Systems ROS Status of ROS 10 or more systems reviewed and unremarkable except as noted in history and below [facility] Medical History (Updated 10/24/24 @ 12:38 by Heather Bailey DO) Colonoscopy planned Surgical History (Updated 03/27/24 @ 11:19 by Ashley Overton) S/P tendon repair ?Z98.890 - Other specified postprocedural states (ICD-10) Family History (Updated 03/27/24 @ 11:18 by Ashley Overton) Mother Family history of cancer Family history of myocardial infarction Grandmother Family history of myocardial infarction Sister Family history of myocardial infarction Social History (Updated 03/27/24 @ 11:13 by Ashley Overton) Within the past year, how often did you have a drink containing alcohol: monthly or less Within the past year, how many standard drinks containing alcohol did you have on a typical day: 1 or 2 Within the past year, how often did you have six or more drinks on one occasion: never Total score: 0 Score interpretation: A score less than 4 is consistent with normal alcohol consumption. Smoking status: Never smoker Non-prescribed substance use: denies use Previous occupational history: [employer] Known occupational exposures/hazards: Yes Highest level of school completed/degree received: 6th grade Little interest or pleasure in doing things: not at all Feeling down, depressed, or hopeless: not at all Exam Narrative Exam Narrative: Time Seen: [] Vital Signs: [Per nurse's notes.] General: [Alert] Skin: [Warm, dry, no rash.] Head: [Normocephalic, atraumatic.] Neck: [Supple, trachea midline.] Eye: [Pupils are equal, round and reactive to light, extraocular movements are intact, normal conjunctiva.] Ears, nose, mouth and throat: oral mucosa moist. Cardiovascular: [Regular rate and rhythm, no murmur.] Respiratory: [Lungs are clear to auscultation, respirations are non-labored, breath sounds are equal.] Chest wall: [No tenderness, no deformity.] Gastrointestinal: [Soft, nontender, non distended, normal bowel sounds.] MSK: 5 out of 5 muscle strength x 4 extremities no calf pain or edema, normal distal pulses in all 4 extremities Lymphatics: [No lymphadenopathy.] Psychiatric: [Cooperative, appropriate mood & affect.] Neurological: [Alert and oriented to person, place, time, and situation, no focal neurological deficit observed.] Constitutional Vital Signs, click to edit/add: Last Vital Signs Temp 98.4 F 10/24/24 10:33 Pulse 63 10/24/24 10:40 Resp 20 10/24/24 10:40 BP 136/84 10/24/24 11:30 Pulse Ox 100 10/24/24 11:40 O2 Del Method Room Air 10/24/24 10:33 Course Vital Signs Vital signs: Vital Signs Temperature 98.4 F 10/24/24 10:33 Pulse Rate 64 10/24/24 10:33 Respiratory Rate 18 10/24/24 10:33 Blood Pressure 153/93 H 10/24/24 10:33 Pulse Oximetry 100 10/24/24 10:33 Oxygen Delivery Method Room Air 10/24/24 10:33 Temperature 98.4 F 10/24/24 10:33 Pulse Rate 63 10/24/24 10:40 Respiratory Rate 20 10/24/24 10:40 Blood Pressure 136/84 10/24/24 11:30 Pulse Oximetry 100 10/24/24 11:40 Oxygen Delivery Method Room Air 10/24/24 10:33 Medical Decision Making MDM Narrative Medical decision making narrative: Patient's labs are negative for acute. Troponin negative x 2. Patient does not have any evidence of COVID or flu. CT scan negative for any abnormality. No acute findings to explain his muscle cramping. Possible viral syndrome causing the muscle cramping. Follow-up with family doctor, return to ED if worsening symptoms. Patient's vitals are stable and blood work is nonacute. Patient is comfortable care plan for home Differential Diagnosis Differential Diagnosis: Viral syndrome, [place], electrolyte abnormality, alcohol abuse disorder Lab Data Lab results reviewed: Yes I reviewed the patient's lab results Labs: Lab Results 10/24/24 10/24/24 10/24/24 Range/Units 10:40 11:40 12:11 WBC 3.8 L (4.0-11.0) 10^3/uL RBC 4.36 L (4.70-6.10) 10^6/uL Hgb 13.9 L (14.0-18.0) g/dL Hct 42.8 (42.0-54.0) % MCV 98.2 H (80.0-94.0) fL MCH 31.9 (25.9-34.0) pg MCHC 32.5 (29.9-35.2) g/dL RDW 12.8 (11.0-15.0) % Plt Count 187 (150-450) 10^3/uL MPV 8.8 L (9.5-13.5) fL Neut % (Auto) 55.4 (43.0-75.0) % Lymph % (Auto) 30.3 (20.5-60.0) % [place] % (Auto) 9.2 (1.7-12.0) % Eos % (Auto) 4.0 (0.9-7.0) % Baso % (Auto) 0.8 (0.2-2.0) % Neut # (Auto) 2.1 (1.4-6.5) 10^3/uL Lymph # (Auto) 1.2 (1.2-3.8) 10^3/uL [place] # (Auto) 0.4 (0.3-0.8) 10^3/uL Eos # (Auto) 0.2 (0.0-0.7) 10^3/uL Baso # (Auto) 0.0 (0.0-0.1) 10^3/uL Abs Immat Gran (auto) 0.01 (0.00-0.03) 10^3/uL Imm/Tot Granulo (auto) 0.3 (0.0-0.5) % Sodium 140 (136-145) mmol/L Potassium 4.2 (3.5-5.1) mmol/L Chloride 104 (98-107) mmol/L Carbon Dioxide 27.4 (21.0-32.0) mmol/L Anion Gap 12.8 BUN 11.0 (7.0-18.0) mg/dL Creatinine 0.83 (0.70-1.30) mg/dL Est GFR ( Amer) >60 (>=60 mL/min/1.73m^2) Est GFR (Non-Af Amer) >60 (>=60 mL/min/1.73m^2) BUN/Creatinine Ratio 13.3 Glucose 115 H (74-106) mg/dL Calcium 8.6 (8.5-10.1) mg/dL Magnesium 1.9 (1.8-2.4) mg/dL Total Bilirubin 0.7 (0.2-1.0) mg/dL AST 29 (15-37) U/L ALT 24 (16-63) U/L Alkaline Phosphatase 77 (46-116) U/L Troponin I High Sens 6.9 6.5 (4.0-76.1) pg/mL Total Protein 7.1 (6.4-8.2) g/dL Albumin 3.7 (3.4-5.0) g/dL Globulin 3.4 g/dL Albumin/Globulin Ratio 1.1 Influenza Type A Ag Negative Influenza Type B Ag Negative SARS-CoV-2 Ag (CV2AG) Negative (NEGATIVE) Imaging Data CT scan - head: Radiologist's impression: ITS Impressions Head CT 10/24/24 10:34 IMPRESSION: No acute intracranial abnormality Electronically authenticated by: THOMAS ROWE Date: 10/24/2024 11:22 Discharge Plan Discharge Chief Complaint: Extremity Problem, Nontraumatic Clinical Impression: Viral infection Patient Disposition: Home, Self-Care Time of Disposition Decision: 12:38 Condition: Good Mode of Transportation: Private Vehicle Prescriptions / Home Meds: No Action ibuprofen [Advil] 200 mg tablet 600 mg PO .every morning multivitamin [Daily Multi-Vitamin] Tablet 1 tab PO DAILY Suflave 178.7-7.3-0.5 gram recon soln See Rx Instructions .ROUTE .COMPLEX Patient Comments: to be started and finished on 04/03/2024 Rx Instructions: follow given instructions Print Language: Cam[place] Instructions: Viral Syndrome (ED) Referrals: Physician,Non-Staff, MD [Primary Care Provider] - 1 week
[2024-10-24 10:55] LABS: Basophils Percent Auto 0.8 % (0.2-2.0); Eosinophils Absolute Auto 0.2 10^3/uL (0.0-0.7); Hematocrit 42.8 % (42.0-54.0); Hemoglobin 13.9 g/dL (14.0-18.0); Immature Granulocytes Abs Auto 0.01 10^3/uL (0.00-0.03); Immature Granulocytes Pct Auto 0.3 % (0.0-0.5); Lymphocytes Absolute Auto 1.2 10^3/uL (1.2-3.8); Lymphocytes Percent Auto 30.3 % (20.5-60.0); Mean Corpuscular HGB Conc 32.5 g/dL (29.9-35.2); Mean Corpuscular Hemoglobin 31.9 pg (25.9-34.0); Mean Corpuscular Volume 98.2 fL (80.0-94.0); Mean Platelet Volume 8.8 fL (9.5-13.5); Monocytes Absolute Auto 0.4 10^3/uL (0.3-0.8); Monocytes Percent Auto 9.2 % (1.7-12.0); Neutrophils Absolute Auto 2.1 10^3/uL (1.4-6.5); Neutrophils Percent Auto 55.4 % (43.0-75.0); Platelet Count 187 10^3/uL (150-450); Red Blood Count 4.36 10^6/uL (4.70-6.10); Red Cell Distribution Width 12.8 % (11.0-15.0); White Blood Count 3.8 10^3/uL (4.0-11.0)
[2024-10-24 11:02] LABS: Alanine Aminotransferase 24 U/L (16-63); Albumin Globulin Ratio 1.1; Albumin Level 3.7 g/dL (3.4-5.0); Alkaline Phosphatase 77 U/L (46-116); Anion Gap 12.8; Aspartate Amino Transferase 29 U/L (15-37); BUN Creatinine Ratio 13.3; Bilirubin Total 0.7 mg/dL (0.2-1.0); Calcium 8.6 mg/dL (8.5-10.1); Carbon Dioxide 27.4 mmol/L (21.0-32.0); Chloride 104 mmol/L (98-107); Estimated GFR (African America >60 (>=60 mL/min/1.73m^2); Estimated GFR (Non-African Ame >60 (>=60 mL/min/1.73m^2); Globulin 3.4 g/dL; Glucose 115 mg/dL (74-106); Potassium 4.2 mmol/L (3.5-5.1); Sodium 140 mmol/L (136-145); Total Protein 7.1 g/dL (6.4-8.2)
[2024-10-24 11:05] LABS: Magnesium 1.9 mg/dL (1.8-2.4); Troponin I High Sensitivity 6.9 pg/mL (4.0-76.1)
[2024-10-24] MEDS: 0.9 % SODIUM CHLORIDE 1,000 ML 1000 ML IV (11:06)
[2024-10-24 11:58] LABS: Influenza Virus A Antigen Negative; Influenza Virus B Antigen Negative; Internal Control Within Normal Limits; SARS-CoV-2 Ag NEGATIVE (NEGATIVE)
[2024-10-24 12:33] LABS: Troponin I High Sensitivity 6.5 pg/mL (4.0-76.1)
== END 2024-10-24 13:21 | disposition home or self-care (01) ==
PROVIDERS: Emergency Provider Emergency Medicine
DX: B34.9 Viral infection, unspecified (principal); R42 Dizziness and giddiness; R25.2 Cramp and spasm
CPT/HCPCS: 36415; 70450; 80053; 83735; 84484; 85025; 87804; 87811; 93005; 99285